=== PATIENT | female | born 1945 | race Caucasian/White ===

== ENCOUNTER 2018-05-31 10:40 | Outpatient (REF) | payer MEDICARE, OTHER, SELFPAY ==
[2018-06-04 13:00] LABS: Lyme Ab w Rflx to Lyme Confirm Negative
== END 2018-05-31 11:00 ==
LOC: NCHCN 10:40
PROVIDERS: PCP Internal Medicine; Visit Provider Internal Medicine
DX: G51.0 Bell's palsy (principal)
CPT/HCPCS: 86618

== ENCOUNTER 2018-06-18 16:19 | Outpatient (REF) | payer MEDICARE, OTHER, SELFPAY ==
[2018-06-18 19:27] LABS: ALT 67 U/L (12-78); AST 33 U/L (15-37); Alkaline Phosphatase 104 U/L (46-116); Anion Gap 7.7 mmol/L (3-11); BUN 21 mg/dL (7-18); Bilirubin, Total 0.4 mg/dL (0.2-1.0); CO2 28.3 mmol/L (21.0-32.0); CREATININE 1.02 mg/dL (0.55-1.02); Calcium 9.1 mg/dL (8.5-10.1); Chloride 101 mmol/L (98-107); Estimated GFR 53.42 (mL/min/1.73m2); Glucose 103 mg/dL (70-100); LDL CHOLESTEROL 68 mg/dL (<100); Potassium 3.6 mmol/L (3.5-5.1); Sodium 137 mmol/L (136-145); Total Protein 7.4 g/dL (6.4-8.2)
== END 2018-06-18 16:39 ==
LOC: NCHCN 16:19
PROVIDERS: PCP Internal Medicine; Visit Provider Internal Medicine
DX: G51.0 Bell's palsy (principal); I10 Essential (primary) hypertension
CPT/HCPCS: 80053; 83721; 84443

== ENCOUNTER → 2019-05-08 08:51 | Outpatient (BNVA) | payer MEDICARE, OTHER, SELFPAY | PROVIDERS: PCP Internal Medicine; Referring Provider Internal Medicine; Visit Provider Student in an Organized Health Care Education/Training Program | DX: M65.312 Trigger thumb, left thumb (principal) | CPT/HCPCS: 20600; 99203; J1030 ==

== ENCOUNTER 2019-06-24 16:01 | Outpatient (REF) | payer MEDICARE, OTHER, SELFPAY ==
[2019-06-24 19:42] LABS: ALT 58 U/L (14-59); BUN 14 mg/dL (7-18); CREATININE 1.04 mg/dL (0.55-1.02); Calcium 9.2 mg/dL (8.5-10.1); Chloride 101 mmol/L (98-107); Estimated GFR 52.09 (mL/min/1.73m2); Glucose 119 mg/dL (70-100); LDL CHOLESTEROL 64 mg/dL (<100); Potassium 3.5 mmol/L (3.5-5.1); Sodium 141 mmol/L (136-145)
== END 2019-06-24 16:21 ==
LOC: NCHCN 16:01
PROVIDERS: PCP Internal Medicine; Visit Provider Internal Medicine
DX: I10 Essential (primary) hypertension (principal); F41.9 Anxiety disorder, unspecified; R73.09 Other abnormal glucose; E78.89 Other lipoprotein metabolism disorders
CPT/HCPCS: 80048; 83721; 83036; 84460

== ENCOUNTER 2020-02-10 15:23 | Outpatient (REF) | payer MEDICARE, OTHER, SELFPAY ==
[2020-02-10 19:13] LABS: HCT 43.6 % (36.0-46.0); HGB 14.7 g/dL (12.0-15.5); Mean Corp. HGB Concentration 33.7 g/dL (32.0-36.0); Mean Corpuscular Hemoglobin 29.1 pg (27.0-33.0); Mean Corpuscular Volume 86.3 fL (80-95); Mean Platelet Volume 9.5 fL (8.0-11.0); Platelet Count 353 x1000/uL (130-400); RBC 5.05 m/cumm (4.00-5.20); RBC Distribution Width 14.3 % (11.7-14.6)
[2020-02-10 19:30] LABS: TSH (W/Ref FT4) 1.28 uIU/mL (0.36-3.74)
== END 2020-02-10 15:43 ==
LOC: NCHCN 15:23
PROVIDERS: PCP Internal Medicine; Visit Provider Nurse Practitioner Family
DX: R73.09 Other abnormal glucose (principal); I10 Essential (primary) hypertension; R22.1 Localized swelling, mass and lump, neck
CPT/HCPCS: 85027; 83036; 84443

== ENCOUNTER 2021-01-29 18:03 | Outpatient (REF) | payer MEDICARE, OTHER, SELFPAY ==
[2021-01-29 18:47] LABS: ESR 14 mm/hr (0-30)
[2021-01-29 18:49] LABS: HGB 14.8 g/dL (11.2-15.7); MCH 28.1 pg (27.0-33.0); MCHC 32.9 % (32.0-36.0); MCV 85.6 fL (80-95); MPV 9.8 fL (8.0-11.0); Platelet Count 323 10^3/uL (130-400); RBC 5.26 10^6/uL (3.93-5.22); RDW 13.2 % (11.7-14.6); RDW-SD 41.9 fL; WBC 10.15 10^3/uL (4.4-10.8)
[2021-01-29 19:00] LABS: Anion Gap 9.4 mmol/L (3-11); BUN 16 mg/dL (7-18); C-Reactive Protein 0.35 mg/dL (0.0-0.3); CO2 27.6 mmol/L (21.0-32.0); CREATININE 0.8 mg/dL (0.55-1.02); Calcium 9.2 mg/dL (8.5-10.1); Chloride 105 mmol/L (98-107); Glucose 95 mg/dL (74-106); Potassium 3.6 mmol/L (3.5-5.1); Sodium 142 mmol/L (136-145)
== END 2021-01-29 18:04 | disposition home or self-care (01) ==
LOC: NCHCN 18:03
PROVIDERS: PCP Internal Medicine; Visit Provider Internal Medicine
DX: I10 Essential (primary) hypertension (principal); M35.3 Polymyalgia rheumatica
CPT/HCPCS: 80048; 85027; 85652; 86140

== ENCOUNTER 2021-06-25 13:02 | Outpatient (REF) | payer MEDICARE, OTHER, SELFPAY ==
[2021-06-25 20:01] LABS: ESR 24 mm/hr (0-30)
[2021-06-26 22:19] LABS: CRP, High Sensitivity 3.35 mg/L (See Note)
== END 2021-06-25 13:03 | disposition home or self-care (01) ==
LOC: NCHCN 13:02
PROVIDERS: PCP Internal Medicine; Visit Provider Internal Medicine
DX: M35.3 Polymyalgia rheumatica (principal)
CPT/HCPCS: 85652; 86141

== ENCOUNTER 2022-05-02 18:08 | Outpatient (REF) | payer MEDICARE, OTHER, SELFPAY ==
[2022-05-02 19:54] LABS: HCT 47.3 % (36.0-46.0); HGB 16.2 g/dL (11.2-15.7); MCH 28.7 pg (27.0-33.0); MCHC 34.2 % (32.0-36.0); MCV 84 fL (80-95); MPV 9.2 fL (8.0-11.0); Platelet Count 403 10^3/uL (130-400); RBC 5.65 10^6/uL (3.93-5.22); RDW 13.4 % (11.7-14.6); RDW-SD 41.1 fL; WBC 18.64 10^3/uL (4.4-10.8)
[2022-05-02 20:19] LABS: Anion Gap 9.6 mmol/L (3-11); BUN 21 mg/dL (7-18); CO2 27.4 mmol/L (21.0-32.0); Calcium 9.2 mg/dL (8.5-10.1); Chloride 99 mmol/L (98-107); Estimated GFR 54.05 (mL/min/1.73m2); Glucose 110 mg/dL (74-106); Magnesium 2.1 mg/dL (1.8-2.4); Potassium 4.1 mmol/L (3.5-5.1); Sodium 136 mmol/L (136-145)
== END 2022-05-02 18:09 | disposition home or self-care (01) ==
LOC: NCHCN 18:08
PROVIDERS: PCP Internal Medicine; Visit Provider Internal Medicine
DX: R45.1 Restlessness and agitation (principal); R00.0 Tachycardia, unspecified
CPT/HCPCS: 80048; 85027; 83735

== ENCOUNTER 2023-04-21 09:34 | Outpatient (REF) | payer MEDICARE, OTHER, SELFPAY ==
[2023-04-21 19:05] LABS: ALT 50 U/L (14-59); AST 29 U/L (15-37); Anion Gap 7.5 mmol/L (3-11); BUN 12 mg/dL (7-18); CO2 29.5 mmol/L (21.0-32.0); Calcium 8.8 mg/dL (8.5-10.1); Calculated LDL 47 mg/dL (<100); Chloride 99 mmol/L (98-107); Cholesterol 128 mg/dL (<200); Estimated GFR 58.39 (mL/min/1.73m2); Glucose 102 mg/dL (74-106); HDL Cholesterol 55 mg/dL (40-60); Potassium 3.7 mmol/L (3.5-5.1); Sodium 136 mmol/L (136-145); Triglyceride 132 mg/dL (<150)
== END 2023-04-21 09:35 | disposition home or self-care (01) ==
LOC: NCHCN 09:34
PROVIDERS: PCP Internal Medicine; Visit Provider Nurse Practitioner Family
DX: E11.65 Type 2 diabetes mellitus with hyperglycemia (principal); I25.10 Atherosclerotic heart disease of native coronary artery without angina pectoris; I10 Essential (primary) hypertension; M35.3 Polymyalgia rheumatica
CPT/HCPCS: 80048; 80061; 84450; 84460

== ENCOUNTER 2023-06-14 18:04 | Outpatient (REF) | payer MEDICARE, OTHER, SELFPAY ==
[2023-06-14 20:34] LABS: C-Reactive Protein 0.37 mg/dL (0.0-0.3)
[2023-06-15 09:45] LABS: ESR (LRH) 20 mm/hr
== END 2023-06-14 18:05 | disposition home or self-care (01) ==
LOC: NCHCN 18:04
PROVIDERS: PCP Internal Medicine; Visit Provider Internal Medicine
DX: M17.12 Unilateral primary osteoarthritis, left knee (principal)
CPT/HCPCS: 85652; 86140

== ENCOUNTER 2024-05-15 18:05 | Outpatient (REF) | payer MEDICARE, OTHER, SELFPAY ==
[2024-05-15 19:57] LABS: ALT 35 U/L (14-59); Anion Gap 5.4 mmol/L (3-11); BUN 17 mg/dL (7-18); CO2 30.6 mmol/L (21.0-32.0); CREATININE 1.1 mg/dL (0.55-1.02); Calcium 9.5 mg/dL (8.5-10.1); Chloride 106 mmol/L (98-107); Creatine Kinase 111 U/L (26-192); Estimated GFR 51.75 (mL/min/1.73m2); Glucose 103 mg/dL (74-106); Potassium 4.6 mmol/L (3.5-5.1); Sodium 142 mmol/L (136-145)
[2024-05-15 20:08] LABS: Calculated LDL 43 mg/dL (<100); Cholesterol 141 mg/dL (<200); HDL Cholesterol 63 mg/dL (40-60); Triglyceride 179 mg/dL (<150)
== END 2024-05-15 18:06 | disposition home or self-care (01) ==
LOC: NCHCN 18:05
PROVIDERS: PCP Internal Medicine; Visit Provider Internal Medicine
DX: I10 Essential (primary) hypertension (principal); E11.65 Type 2 diabetes mellitus with hyperglycemia
CPT/HCPCS: 80048; 80061; 82550; 83036; 84460

== ENCOUNTER 2025-05-06 15:59 | Outpatient (REF) | payer MEDICARE, SELFPAY | END 2025-05-06 16:00 | disposition home or self-care (01) | LOC: NCHCN 15:59 | PROVIDERS: PCP Internal Medicine; Visit Provider Nurse Practitioner Family | DX: N89.8 Other specified noninflammatory disorders of vagina (principal) | CPT/HCPCS: 87480; 87510; 87660 ==